=== PATIENT | male | born 1980 | race Caucasian/White ===

== ENCOUNTER 2016-12-18 02:24 | Emergency (ER) | payer SELFPAY ==
--- NOTE | 2016-12-18 02:57 | EDM.PDOC ---
ED HPI Behavioral Health - General Chief Complaint: Behavioral/Psych Stated Complaint: WELLNESS CHECK Time Seen by Provider: 12/18/16 02:47 - History of Present Illness INITIAL COMMENTS - FREE TEXT/NARRATIVE: 36-year-old male presents to the emergency room in custody for clearance to go to longterm. Patient was brought in because the for an outstanding warrant and after brought in because he complained of suicidal thoughts and wishes the patient admits to shooting up meth earlier tonight. Patient states that he has been on psychiatric medications however is been off for 10 days. He has followup with [facility] on the december. Patient has no other complaints at this time he denies pain. The patient cannot give a suicidal plan however just rambles on about not caring. The patient has some lacerations of very superficial in the right side of his neck he says he was using to my to do this. - Related Data Allergies Allergy/AdvReac Type Severity Reaction Status Date / Time Penicillins Allergy Cannot Verified 12/18/16 02:39 Remember Home Medications: Home Meds Aspirin 325 mg PO DAILY 10/27/16 [History] Chest Pain Score (Numeric/FACES): 1 Past Medical History Cardiovascular History: Reports: Heart murmur Respiratory History: Reports: Asthma Psychiatric History: Reports: Addiction, Anxiety, Depression, PTSD Social & Family History - Tobacco Use Smoking Status *Q: Current Every Day Smoker Years of Tobacco use: 10 Packs/Tins Daily: 1 - Caffeine Use Caffeine Use: Reports: Coffee - Recreational Drug Use Recreational Drug Type: Reports: Methamphetamine Recreational Drug Use Frequency: Weekly ED ROS GENERAL - Review of Systems Review Of Systems: See Below Constitutional: Denies: fever, chills HEENT: Reports: No symptoms Respiratory: Reports: No Symptoms Cardiovascular: Reports: No symptoms GI/Abdominal: Reports: No symptoms : Reports: no symptoms Musculoskeletal: Reports: no symptoms Skin: Reports: no symptoms Psychiatric: Reports: Agitation, Anxiety, Suicidal ideation ED EXAM, BEHAVIORAL HEALTH - Physical Exam Exam: See Below Exam Limited By: Other (He has not uncooperative but he is very agitated at this point) General Appearance: mild distress (His distress is brought on by is on agitation ) Eye Exam: bilateral eye: normal inspection Ears: normal external exam, normal canal, hearing grossly normal, normal TMs Nose: normal inspection, normal mucosa, no blood Throat/Mouth: Normal inspection, Normal lips, Normal teeth, Normal gums, Normal oropharynx, Normal voice, No airway compromise Head: atraumatic, normocephalic Neck: normal inspection, supple, non-tender, full range of motion. No: lymphadenopathy (L), lymphadenopathy (R) Respiratory/Chest: no respiratory distress, lungs clear, normal breath sounds Cardiovascular: regular rate, rhythm, no edema, no murmur, tachycardia GI/Abdominal: normal bowel sounds, soft, non tender, no organomegaly, no distention, no abnormal bruit, no mass Back Exam: normal inspection. No: CVA tenderness (L), CVA tenderness (R) Psychiatric: flight of ideas, suicidal thoughts, tangential thoughts, threatening behavior. 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 It sounds like he will be incarcerated for some time to come with no outlook for early discharge. He does not need to be committed at this point. He will be discharged to the longterm suicidal precautions mental health evaluation when he is no longer under stimulant effect. 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 Patient is cleared at this time to go to longterm. He needs to be on suicide watch. Patient needs mental health evaluation when is not affected by the drugs.
== END 2016-12-18 03:07 ==
LOC: JD.ED 02:24
CPT/HCPCS: 99282; 99283